=== PATIENT | female | born 1955 | race Caucasian/White ===

== ENCOUNTER → 2019-01-23 | Outpatient (CLI) | payer OTHER ==
[~2019-01-23] MED LIST: ALD25 PO; BAY PO; BG MC; COR3 PO; DEXPF IV; HEP100I IV; HEP5I IV; HUMULIN R100 U/1 M1 SC; IPRATROPIUM BROM3 M2 HHN; L40 PO; LAC PO; LEV500PM IV; LIPI20 PO; TYL325 PO; ZES10 PO; ZOFI IV
[2019-01-23 08:54] LABS: ALBUMIN 3.7 g/dL (3.4-5.0); BILIRUBIN DIRECT 0.1 mg/dL (0.0-0.2); BILIRUBIN TOTAL 0.45 mg/dL (0.20-1.00); CALCIUM 9.4 mg/dL (8.5-10.1); CARBON DIOXIDE 24.7 mmol/L (21-32); CREATININE SERUM 1.5 mg/dL (0.6-1.0); TOTAL PROTEIN, SERUM 7.6 g/dL (6.4-8.2)
[2019-01-24 16:05] LABS: BASOPHIL % 0.6 % (0-2); PLATELET COUNT 187 x10^3mcL (130-400); RED CELL DISTRIBUTION WIDTH 12.3 % (11.5-14.5)
== END | disposition home or self-care (01) ==
LOC: LB 06:44
PROVIDERS: Internal Medicine
DX: Z00.00 Encounter for general adult medical examination without abnormal findings (principal)

== ENCOUNTER → 2019-04-13 | Outpatient (CLI) | payer OTHER | END | disposition home or self-care (01) | LOC: CA 09:00 | DX: I42.9 Cardiomyopathy, unspecified (principal) ==

== ENCOUNTER 2020-02-10 06:47 | Inpatient (IN) | payer OTHER ==
[~2020-02-10] VITALS: Ht 152.4 cm; Wt 59.6 kg
[2020-02-10 06:58] VITALS: Ht 152.4 cm; Wt 59.6 kg
[2020-02-10 07:40] LABS: BASOPHIL % 0.2 % (0-2); PLATELET COUNT 207 x10^3mcL (130-400); RED CELL DISTRIBUTION WIDTH 18.6 % (11.5-14.5)
[2020-02-10 07:55] LABS: ALKALINE PHOSPHATASE 165 U/L (46-116); ALT/SGPT 16 U/L (14-59); AST/SGOT 20 U/L (15-37); BILIRUBIN TOTAL 1.1 mg/dL (0.20-1.00); C REACTIVE PROTEIN 5.9 mg/dL (<=0.9); CALCIUM 8.9 mg/dL (8.5-10.1); CHLORIDE SERUM 92 mmol/L (98-107); CREATININE SERUM 1.6 mg/dL (0.6-1.0); GFR1 34 mL/min; POTASSIUM SERUM 4.4 mmol/L (3.5-5.1); SODIUM SERUM 130 mmol/L (136-145)
[2020-02-10] MEDS ORDERED: LASIX20 MG PO (07:57)
[2020-02-10 07:58] LABS: ALBUMIN 2.8 g/dL (3.4-5.0); GLUCOSE SERUM 519 mg/dL (74-106); TOTAL PROTEIN, SERUM 6.1 g/dL (6.4-8.2)
[2020-02-10] MEDS ORDERED: ALDACTONE25 MG PO (07:58)
[2020-02-10] MEDS ORDERED: BUMETANIDE1 MG PO (07:58)
[2020-02-10] MEDS ORDERED: CARVEDILOL ER40 MG PO (07:59)
[2020-02-10] MEDS ORDERED: AUGMENTIN1 TA1 PO (08:00)
[2020-02-10] MEDS ORDERED: COZAAR100 MG PO (08:00)
[2020-02-10] MEDS ORDERED: PLAVIX75 M1 PO (08:01)
[2020-02-10] MEDS ORDERED: VITAMIN D50000 I4 PO (08:01)
[2020-02-10] MEDS ORDERED: ATORVASTATIN CA40 M1 PO (08:02)
[2020-02-10 08:48] LABS: ERYTHROCYTE SED RATE 16 mm/hr (0-30)
[2020-02-10 08:54] LABS: CK-MB 2.6 ng/mL (0-3.6)
[2020-02-10 09:05] LABS: FREE T4 1.28 ng/dL (0.76-1.46); FREE THYROXINE INDEX 2.3 ug/dL (1.4-4.5); T4(THYROXINE) 5.7 ug/dL (4.7-13.3)
[2020-02-10 10:43] VITALS: BP 143/77
[2020-02-10 11:14] VITALS: BP 154/77
[2020-02-10 11:23] LABS: T3 TOTAL 0.73 ng/mL
[2020-02-10 14:48] LABS: microscopic required? YES; urine erythrocyte 1+ (NEGATIVE)
[2020-02-10 16:17] VITALS: BP 126/78
[2020-02-10 20:41] VITALS: BP 117/64
[2020-02-11 05:45] VITALS: BP 109/66
[2020-02-11 07:35] LABS: CALCIUM 8.5 mg/dL (8.5-10.1); CARBON DIOXIDE 31.2 mmol/L (21-32); CREATININE SERUM 1.3 mg/dL (0.6-1.0); POTASSIUM SERUM 3.9 mmol/L (3.5-5.1)
[2020-02-11 07:45] VITALS: BP 136/78
[2020-02-11 09:09] LABS: BASOPHIL % 0.1 % (0-2); PLATELET COUNT 211 x10^3mcL (130-400); RED CELL DISTRIBUTION WIDTH 18.7 % (11.5-14.5)
[2020-02-11 12:10] VITALS: BP 142/77
[2020-02-11 16:27] VITALS: BP 133/61
[2020-02-11 20:20] VITALS: BP 106/63
[2020-02-12 05:45] VITALS: BP 104/61
[2020-02-12 06:42] LABS: BASOPHIL % 0.3 % (0-2); PLATELET COUNT 194 x10^3mcL (130-400)
[2020-02-12 06:49] LABS: CALCIUM 8.1 mg/dL (8.5-10.1); CARBON DIOXIDE 27.4 mmol/L (21-32); CREATININE SERUM 1.2 mg/dL (0.6-1.0); POTASSIUM SERUM 3.6 mmol/L (3.5-5.1)
[2020-02-12 07:17] LABS: RED CELL DISTRIBUTION WIDTH 19.1 % (11.5-14.5)
[2020-02-12 09:25] VITALS: BP 123/69
[2020-02-12 13:23] VITALS: BP 104/59
[2020-02-12 17:04] VITALS: BP 128/78
[2020-02-12 20:22] VITALS: BP 136/73
[2020-02-13 05:31] VITALS: BP 139/71
[2020-02-13 06:27] LABS: BASOPHIL % 0.1 % (0-2); PLATELET COUNT 205 x10^3mcL (130-400)
[2020-02-13 06:46] LABS: RED CELL DISTRIBUTION WIDTH 19.4 % (11.5-14.5)
[2020-02-13 07:02] LABS: CALCIUM 8.5 mg/dL (8.5-10.1); CARBON DIOXIDE 29.3 mmol/L (21-32); CREATININE SERUM 1.3 mg/dL (0.6-1.0); POTASSIUM SERUM 3.8 mmol/L (3.5-5.1)
[2020-02-13 08:04] VITALS: BP 109/72
[2020-02-13 11:42] VITALS: BP 112/61
[2020-02-13 15:24] VITALS: BP 92/68
[2020-02-13 17:11] VITALS: BP 92/68
[2020-02-13 20:25] VITALS: BP 116/61
[2020-02-14 06:28] LABS: PLATELET COUNT 193 x10^3mcL (130-400)
[2020-02-14 06:55] LABS: CALCIUM 8.6 mg/dL (8.5-10.1); CARBON DIOXIDE 29.2 mmol/L (21-32); CREATININE SERUM 1.4 mg/dL (0.6-1.0); POTASSIUM SERUM 3.4 mmol/L (3.5-5.1)
[2020-02-14 07:07] LABS: BASOPHIL % 0 % (0-2); RED CELL DISTRIBUTION WIDTH 19.1 % (11.5-14.5)
[2020-02-14 08:26] VITALS: BP 140/82
[2020-02-14 12:14] VITALS: BP 140/68
[2020-02-14 16:28] VITALS: BP 114/66
[2020-02-14 21:08] VITALS: BP 124/68
[2020-02-15 05:27] VITALS: BP 148/68
[2020-02-15 06:23] LABS: BASOPHIL % 0.2 % (0-2); PLATELET COUNT 209 x10^3mcL (130-400)
[2020-02-15 06:25] LABS: CALCIUM 8.4 mg/dL (8.5-10.1); CARBON DIOXIDE 28.6 mmol/L (21-32); CREATININE SERUM 1.3 mg/dL (0.6-1.0); POTASSIUM SERUM 3.4 mmol/L (3.5-5.1)
[2020-02-15 06:42] LABS: RED CELL DISTRIBUTION WIDTH 19.4 % (11.5-14.5)
[2020-02-15 08:36] VITALS: BP 132/74
[2020-02-15 17:45] VITALS: BP 127/71
[2020-02-15 21:00] VITALS: BP 117/69
[2020-02-15 21:31] VITALS: BP 124/69
[2020-02-16 04:49] VITALS: BP 99/56
[2020-02-16 06:39] LABS: CALCIUM 8.6 mg/dL (8.5-10.1); CARBON DIOXIDE 28.3 mmol/L (21-32); CREATININE SERUM 1.3 mg/dL (0.6-1.0); POTASSIUM SERUM 3.8 mmol/L (3.5-5.1)
[2020-02-16 06:42] LABS: BASOPHIL % 0.5 % (0-2); PLATELET COUNT 198 x10^3mcL (130-400)
[2020-02-16 07:07] LABS: RED CELL DISTRIBUTION WIDTH 19.5 % (11.5-14.5)
[2020-02-16 08:19] VITALS: BP 99/57
[2020-02-16 11:59] VITALS: BP 119/70
[2020-02-16 13:01] VITALS: BP 119/70
[2020-02-16] MEDS ORDERED: BACTRIM DS1 TAB PO (14:00)
[2020-02-16] MEDS ORDERED: NORCO1 TA2 PO (14:00)
== END 2020-02-16 15:23 | disposition home or self-care (01) | DRG 853 ==
LOC: ED 06:47 → MU 08:23 → DU 08:23 → MU 02-14 14:22
PROVIDERS: Specialist; Surgery; ADMIT Internal Medicine
PROC: 0JBR0ZZ Excision of Left Foot Subcutaneous Tissue and Fascia, Open Approach (ICD-10-PCS; principal; 2020-02-11 08:30)
DX: A41.9 Sepsis, unspecified organism (principal); A48.0 Gas gangrene; E87.2 Acidosis; L97.425 Non-pressure chronic ulcer of left heel and midfoot with muscle involvement without evidence of necrosis; I13.0 Hypertensive heart and chronic kidney disease with heart failure and stage 1 through stage 4 chronic kidney disease, or unspecified chronic kidney disease; L03.116 Cellulitis of left lower limb; E11.52 Type 2 diabetes mellitus with diabetic peripheral angiopathy with gangrene; I42.9 Cardiomyopathy, unspecified; I50.42 Chronic combined systolic (congestive) and diastolic (congestive) heart failure; E11.621 Type 2 diabetes mellitus with foot ulcer; E11.22 Type 2 diabetes mellitus with diabetic chronic kidney disease; E11.65 Type 2 diabetes mellitus with hyperglycemia; N18.9 Chronic kidney disease, unspecified; I25.10 Atherosclerotic heart disease of native coronary artery without angina pectoris; Z79.82 Long term (current) use of aspirin; Z68.22 Body mass index [BMI] 22.0-22.9, adult; Z95.5 Presence of coronary angioplasty implant and graft; Z79.84 Long term (current) use of oral hypoglycemic drugs; Z90.710 Acquired absence of both cervix and uterus; Z82.3 Family history of stroke; Z83.3 Family history of diabetes mellitus
CPT/HCPCS: 36600; 82962; 83880; 84439; 97110-GP; 97116-GP; 97530-GP; G0378; J1815; J2001; J2250; J2270; J2543; J2704; J3010; J3370; J3490; J7030; J7040; J7050; Q0092